=== PATIENT | female | born 1990 | race Caucasian/White ===

== ENCOUNTER 2018-05-25 11:53 | Inpatient (IN) | payer MEDICAID, OTHER ==
[~2018-05-25] VITALS: Ht 170.2 cm; Wt 90.3 kg
[2018-05-25] MEDS ORDERED: SODIUM CHLORIDE 0.9% 1,000 ML IV ONE (12:36)
[2018-05-25 13:23] LABS: CHLORIDE 107 mEq/L (98-107)
[2018-05-25 13:29] LABS: ETHANOL BLOOD 230 mg/dL
[2018-05-25 13:37] LABS: BASOPHILS % 0.5 % (0.0-2.0); EOSINOPHILS % 0.3 % (0.0-5.0); HCG SCREEN NEGATIVE; HEMATOCRIT. 41.8 % (36.0-48.0); HEMOGLOBIN. 13.9 g/dL (12.0-16.0); MEAN CORPUSCULAR HEMOGLOBIN 32.5 pg (28.0-32.0); MONOCYTES % 3.7 % (2.0-8.0); NEUTROPHILS % 76.5 % (40.0-76.0); PLATELET 268 x1000/uL (130-400); RED BLOOD CELL COUNT 4.26 mill/uL (4.2-5.4); RED CELL DISTRIBUTION WIDTH 13.3 % (11.6-14.6)
[2018-05-25] MEDS ORDERED: ACETYLCYSTEINE 200MG/ML 20% VIAL 30ML (INJ) IV ONE (14:00)
[2018-05-25] MEDS ORDERED: DEXT 5%/0.45% NACL 500ML 500 ML IV ONE (14:00)
[2018-05-25 14:11] LABS: CLARITY URINE CLEAR (CLEAR); COLOR URINE YELLOW (YELLOW); KETONES URINE NEGATIVE (NEGATIVE); LEUKOCYTE ESTERASE URINE NEGATIVE (NEGATIVE); NITRITE URINE NEGATIVE (NEGATIVE); OCCULT BLOOD URINE NEGATIVE (NEGATIVE); PROTEIN URINE NEGATIVE (NEGATIVE); SPECIFIC GRAVITY URINE 1.008 (1.005-1.030); UROBILINOGEN URINE 0.2 E.U./dL (0.2-1.0)
[2018-05-25] MEDS ORDERED: DEXT 5% IV NR (14:15)
[2018-05-25] MEDS ORDERED: ACETYLCYSTEINE IV NR (14:15)
[2018-05-25] MEDS ORDERED: WATER IV NR (14:15)
[2018-05-25 14:40] LABS: *AMPHETAMINES SCREEN URINE NEGATIVE (NEGATIVE); *BARBITURATES SCREEN URINE NEGATIVE (NEGATIVE); *BENZODIAZEPINES SCREEN URINE NEGATIVE (NEGATIVE); *COCAINE SCREEN URINE NEGATIVE (NEGATIVE)
[2018-05-25 14:41] LABS: CANNABINOID URINE SCREEN NEGATIVE (NEGATIVE); METHADONE URINE SCREEN NEGATIVE (NEGATIVE); PHENCYCLIDINE URINE SCREEN NEGATIVE (NEGATIVE)
[2018-05-25 14:43] LABS: OPIATES URINE SCREEN PRESUMTIVE POSITIVE (NEGATIVE)
[2018-05-25] MEDS ORDERED: ACETYLCYSTEINE INJ 4,100 MG in DEXT 5% WATER 500 ML IV NR (15:30)
[2018-05-25] MEDS ORDERED: ACETAMINOPHEN 325MG TABLET PO PRN (18:00)
[2018-05-25] MEDS ORDERED: DOCUSATE SODIUM 100MG CAPSULE PO PRN (18:00)
[2018-05-25] MEDS ORDERED: MAGNESIUM/ALUMINUM HYDROXIDE/SIMETHICONE 30ML UDC PO PRN (18:00)
[2018-05-25] MEDS ORDERED: KETOROLAC 15MG/ML VIAL IV PRN (18:00)
[2018-05-25] MEDS ORDERED: NA PHOS,M-B/NA PHOS,DI-BA ENEMA 118ML PR PRN (18:00)
[2018-05-25] MEDS ORDERED: CLONIDINE 0.1MG TABLET PO PRN (18:00)
[2018-05-25] MEDS ORDERED: HALOPERIDOL LACTATE 5MG/ML VIAL IM PRN (18:00)
[2018-05-25] MEDS ORDERED: ONDANSETRON HCL 4MG/2ML INJ IV PRN (18:00)
[2018-05-25] MEDS ORDERED: NITROGLYCERIN 0.4MG TABLET SL SL PRN (18:00)
[2018-05-25] MEDS ORDERED: ACETYLCYSTEINE INJ 8,200 MG in DEXTROSE 5% WATER 1,000 ML IV ONE (19:30)
[2018-05-26] MEDS ORDERED: MVI, ADULT NO.1 10 ML, FOLIC ACID 1 MG in SODIUM CHLORIDE 0.9% 1,000 ML IV SCH ×3 (00:30)
[2018-05-26] MEDS ORDERED: FAMOTIDINE 20MG TABLET PO NR (09:30)
[2018-05-26 12:51] LABS: CHLORIDE 106 mEq/L (98-107)
[2018-05-26] MEDS ORDERED: KCL 20MEQ/100ML PREMIX 100 ML IV NR (13:30)
[2018-05-26 13:55] LABS: BG BASE EXCESS -0.8 mmol/L (-2.0-2.0); BG CARBOXYHEMOGLOBIN 0.5 % (0.5-1.5); BG DEOXYHEMOGLOBIN 7.4 % (0.0-5.0); BG FRACTION INSPIRED OXYGEN 100; BG HCO3 ACT 23.7 mmol/L (22.0-26.0); BG METHEMOGLOBIN 0.2 % (0.0-1.5); BG OXYGEN SATURATION 92.5 % (92.0-98.5); BG OXYHEMOGLOBIN 91.9 % (94.0-97.0); BG PH 7.402 (7.350-7.450); BG PO2 63.6 mmHg (75.0-100.0); BG SAMPLE SITE RIGHT RADIAL; BG TOTAL HEMOGLOBIN 12.9 g/dL (12.0-18.0); BG VENT MODE MASK - NRB
[2018-05-26 15:12] LABS: CHLORIDE 106 mEq/L (98-107)
[2018-05-26] MEDS ORDERED: POTASSIUM CHLORIDE 20MEQ TABLET SR PO NR (16:01)
[2018-05-26] MEDS ORDERED: MAGNESIUM 2 G PREMIX 50 ML IV ONE (17:15)
[2018-05-26 22:00] VITALS: BP 122/75
[2018-05-26 23:36] VITALS: BP 122/75
[2018-05-27] VITALS (12 sets, daily range): BP systolic 114–136; BP diastolic 61–80
[2018-05-27] MEDS: FAMOTIDINE 20MG TABLET PO SCH ×3 (00:26→21:31)
[2018-05-27 09:39] LABS: BG BILEVEL POS AIRWAY PRESSURE ST=15/5; BG CARBOXYHEMOGLOBIN 0.3 % (0.5-1.5); BG FRACTION INSPIRED OXYGEN 60; BG HCO3 ACT 22.7 mmol/L (22.0-26.0); BG METHEMOGLOBIN 0.2 % (0.0-1.5); BG OXYHEMOGLOBIN 98.5 % (94.0-97.0); BG PCO2 34.2 mmHg (35.0-45.0); BG PH 7.439 (7.350-7.450); BG PO2 175.7 mmHg (75.0-100.0); BG PRESSURE SUPPORT 10; BG SAMPLE SITE RIGHT RADIAL; BG TOTAL HEMOGLOBIN 11.8 g/dL (12.0-18.0); BG VENT MODE MASK - BIPAP; BG VENT RATE 14 set
[2018-05-27] MEDS ORDERED: PIPERACILLIN/TAZ 3.375G PREMIX 50 ML IV SCH (10:30)
[2018-05-27] MEDS ORDERED: IPRATROPIUM/ALBUTEROL 0.5-3(2.5)MG/3ML NEB HHN SCH (12:00)
[2018-05-27] MEDS: GUAIFENESIN 600MG ER TABLET PO SCH ×2 (12:03→21:31)
[2018-05-27] MEDS: PIPERACILLIN/TAZ 3.375G PREMIX 50 ML IV SCH ×3 (12:03→23:28)
[2018-05-27 12:44] LABS: BASOPHILS % 0.2 % (0.0-2.0); EOSINOPHILS % 0.8 % (0.0-5.0); HEMATOCRIT. 32.8 % (36.0-48.0); LYMPHOCYTES % 7.9 % (20.0-50.0); MEAN CORPUSCULAR HEMOGLOBIN 32.4 pg (28.0-32.0); MEAN CORPUSCULAR VOLUME 96.9 fL (81.0-99.0); MEAN PLATELET VOLUME 8.7 fl (7.4-10.4); MONOCYTES % 4.5 % (2.0-8.0); NEUTROPHILS % 86.6 % (40.0-76.0); PLATELET 174 x1000/uL (130-400); RED BLOOD CELL COUNT 3.38 mill/uL (4.2-5.4); RED CELL DISTRIBUTION WIDTH 12.6 % (11.6-14.6)
[2018-05-27 13:20] LABS: CHLORIDE 108 mEq/L (98-107)
[2018-05-27] MEDS: IPRATROPIUM/ALBUTEROL 0.5-3(2.5)MG/3ML NEB HHN SCH ×2 (13:51→21:16)
[2018-05-27] MEDS ORDERED: METHYLPREDNISOLONE SOD SUCC 125 MG/2 ML VIAL IV SCH (14:00)
[2018-05-28] VITALS (12 sets, daily range): BP systolic 121–145; BP diastolic 65–88
[2018-05-28] MEDS: IPRATROPIUM/ALBUTEROL 0.5-3(2.5)MG/3ML NEB HHN SCH ×3 (02:05→14:21)
[2018-05-28] MEDS: PIPERACILLIN/TAZ 3.375G PREMIX 50 ML IV SCH ×4 (06:14→23:00)
[2018-05-28] MEDS: GUAIFENESIN 600MG ER TABLET PO SCH ×2 (08:31→21:01)
[2018-05-28] MEDS: FAMOTIDINE 20MG TABLET PO SCH ×2 (08:31→21:01)
[2018-05-29] VITALS (10 sets, daily range): BP systolic 117–149; BP diastolic 59–98
[2018-05-29] MEDS: IPRATROPIUM/ALBUTEROL 0.5-3(2.5)MG/3ML NEB HHN SCH ×2 (01:09→21:30)
[2018-05-29] MEDS: PIPERACILLIN/TAZ 3.375G PREMIX 50 ML IV SCH ×4 (05:21→23:48)
[2018-05-29] MEDS: FAMOTIDINE 20MG TABLET PO SCH ×2 (08:24→20:18)
[2018-05-29] MEDS: GUAIFENESIN 600MG ER TABLET PO SCH ×2 (08:24→20:18)
[2018-05-29] MEDS ORDERED: ONDA8TAB6 PO (16:09)
[2018-05-29] MEDS ORDERED: HYDR-4009 PO (16:09)
[2018-05-29] MEDS ORDERED: IBUP-2048 PO (16:09)
[2018-05-30] VITALS: BP 114/68
[2018-05-30] MEDS: IPRATROPIUM/ALBUTEROL 0.5-3(2.5)MG/3ML NEB HHN SCH ×4 (02:25→20:28)
[2018-05-30 04:00] VITALS: BP 117/75
[2018-05-30] MEDS: PIPERACILLIN/TAZ 3.375G PREMIX 50 ML IV SCH ×3 (06:42→17:19)
[2018-05-30 08:00] VITALS: BP 136/89
[2018-05-30] MEDS: GUAIFENESIN 600MG ER TABLET PO SCH ×2 (09:25→21:58)
[2018-05-30] MEDS: FAMOTIDINE 20MG TABLET PO SCH ×2 (09:25→21:50)
[2018-05-30] MEDS: GUAIFENESIN-DM 200MG-20MG/10ML UDC PO PRN (10:47)
[2018-05-30 12:00] VITALS: BP 117/69
[2018-05-30 16:00] VITALS: BP 110/65
[2018-05-30 20:00] VITALS: BP 128/77
[2018-05-31] VITALS: BP 122/77
[2018-05-31] MEDS: IPRATROPIUM/ALBUTEROL 0.5-3(2.5)MG/3ML NEB HHN SCH ×4 (01:27→21:48)
[2018-05-31] MEDS: PIPERACILLIN/TAZ 3.375G PREMIX 50 ML IV SCH ×4 (03:41→21:59)
[2018-05-31 04:00] VITALS: BP 117/71
[2018-05-31 08:00] VITALS: BP 135/89
[2018-05-31] MEDS: GUAIFENESIN 600MG ER TABLET PO SCH ×2 (08:31→23:00)
[2018-05-31] MEDS: FAMOTIDINE 20MG TABLET PO SCH ×2 (08:31→23:00)
[2018-05-31 12:00] VITALS: BP 129/79
[2018-05-31 16:00] VITALS: BP 116/74
[2018-05-31 20:00] VITALS: BP 118/72
[2018-05-31] MEDS: GUAIFENESIN-DM 200MG-20MG/10ML UDC PO PRN (23:01)
[2018-06-01] VITALS: BP 116/70
[2018-06-01] MEDS: IPRATROPIUM/ALBUTEROL 0.5-3(2.5)MG/3ML NEB HHN SCH ×4 (02:48→21:25)
[2018-06-01] MEDS: PIPERACILLIN/TAZ 3.375G PREMIX 50 ML IV SCH ×4 (03:55→22:37)
[2018-06-01 04:00] VITALS: BP 110/68
[2018-06-01 08:00] VITALS: BP 103/66
[2018-06-01] MEDS: FAMOTIDINE 20MG TABLET PO SCH ×2 (08:47→22:50)
[2018-06-01] MEDS: GUAIFENESIN 600MG ER TABLET PO SCH ×2 (08:47→22:50)
[2018-06-01 12:21] VITALS: BP 105/59
[2018-06-01 16:00] VITALS: BP 108/66
[2018-06-01] MEDS: GUAIFENESIN-DM 200MG-20MG/10ML UDC PO PRN (17:17)
[2018-06-01 20:00] VITALS: BP 112/65
[2018-06-01] MEDS: IPRATROPIUM/ALBUTEROL 0.5-3(2.5)MG/3ML NEB INH PRN (20:50)
[2018-06-02] VITALS: BP 122/74
[2018-06-02 04:00] VITALS: BP 112/68
[2018-06-02] MEDS: PIPERACILLIN/TAZ 3.375G PREMIX 50 ML IV SCH ×3 (04:06→14:30)
[2018-06-02 08:00] VITALS: BP 111/70
[2018-06-02] MEDS: FAMOTIDINE 20MG TABLET PO SCH (08:43)
[2018-06-02] MEDS: GUAIFENESIN 600MG ER TABLET PO SCH (08:43)
[2018-06-02 11:00] VITALS: BP 116/73
[2018-06-02] MEDS: IPRATROPIUM/ALBUTEROL 0.5-3(2.5)MG/3ML NEB INH PRN (12:24)
[2018-06-02 16:00] VITALS: BP 130/73
[2018-06-02 16:50] VITALS: BP 130/73
== END 2018-06-02 17:36 | disposition home or self-care (01) | DRG 812 ==
LOC: ER 12:07 → EDBEDREQTM 17:00 → EDBEDREQ 17:00 → 3WST 05-26 16:59 → ENRESERV 05-26 17:58 → 6EST 05-29 11:43
PROVIDERS: ADMIT Internal Medicine; ATTEND Internal Medicine
PROC: 5A09357 Assistance with Respiratory Ventilation, Less than 24 Consecutive Hours, Continuous Positive Airway Pressure (ICD-10-PCS; principal; 2018-05-26)
DX: T39.1X1A Poisoning by 4-Aminophenol derivatives, accidental (unintentional), initial encounter (principal); J96.00 Acute respiratory failure, unspecified whether with hypoxia or hypercapnia; J69.0 Pneumonitis due to inhalation of food and vomit; E87.6 Hypokalemia; Y90.7 Blood alcohol level of 200-239 mg/100 ml; F10.10 Alcohol abuse, uncomplicated; M54.30 Sciatica, unspecified side; F10.129 Alcohol abuse with intoxication, unspecified; F32.9 Major depressive disorder, single episode, unspecified; T40.601A Poisoning by unspecified narcotics, accidental (unintentional), initial encounter; Y92.89 Other specified places as the place of occurrence of the external cause
CPT/HCPCS: 36415; 36600; 71045; 80048; 80076; 80305; 80307; 80329; 81025; 82140; 82375; 82805; 83036; 83605; 83735; 84703; 93005; 93970; 94640; 94660; 96365; 96366; 99291; J0132; J1885; J2543; J3475; J3480; J3490; J7030; J7040; J7050; J7060; J7070; J7620